=== PATIENT | male | born 1950 | race Asian ===

== ENCOUNTER 2019-09-18 15:46 | Emergency (ER) | payer MEDICARE, OTHER ==
[~2019-09-18] VITALS: Ht 167.6 cm; Wt 59.1 kg
[2019-09-18] MEDS ORDERED: ASPI-629 PO (16:55)
[2019-09-18] MEDS ORDERED: ATOR-2 PO (16:55)
[2019-09-18] MEDS ORDERED: BUPR75 PO (16:55)
[2019-09-18] MEDS ORDERED: ALBU8HFA DT (17:04)
[2019-09-18] MEDS ORDERED: TAMS-13 PO (17:04)
[2019-09-18] MEDS ORDERED: LOSA50TA2 PO (17:04)
[2019-09-18] MEDS ORDERED: HYDR-3290 PO (17:04)
[2019-09-18] MEDS ORDERED: B CO1CAP6 PO (17:04)
[2019-09-18] MEDS ORDERED: CLON0.1T83 PO (17:04)
[2019-09-18] MEDS ORDERED: INSU100V3 SQ (17:04)
[2019-09-18 17:40] VITALS: BP 172/92
== END 2019-09-18 19:09 | disposition home or self-care (01) ==
LOC: EMS 15:53 → EDBD 15:53 → EMS 19:09
DX: S39.012A Strain of muscle, fascia and tendon of lower back, initial encounter (principal); M51.36 Other intervertebral disc degeneration, lumbar region; E11.9 Type 2 diabetes mellitus without complications; I11.9 Hypertensive heart disease without heart failure; J44.9 Chronic obstructive pulmonary disease, unspecified; F32.9 Major depressive disorder, single episode, unspecified; Z79.899 Other long term (current) drug therapy; Z79.82 Long term (current) use of aspirin; Z98.890 Other specified postprocedural states; W01.0XXA Fall on same level from slipping, tripping and stumbling without subsequent striking against object, initial encounter; Y93.89 Activity, other specified; Y92.89 Other specified places as the place of occurrence of the external cause; Y99.8 Other external cause status
CPT/HCPCS: 70450; 72131